=== PATIENT | female | born 1980 | race Caucasian/White ===

== ENCOUNTER 2020-04-15 15:46 | Emergency (ER) | payer OTHER ==
[~2020-04-15] VITALS: Ht 170.2 cm; Wt 56.7 kg
[2020-04-15 15:46] VITALS: BP 137/80
[2020-04-15] MEDS ORDERED: ACETAMINOPHEN 325 MG TABLET PO ONE (16:15)
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
[2020-04-15] MEDS ORDERED: NAPR-683 PO (17:42)
[2020-04-15] MEDS ORDERED: CYCL-331 PO (17:42)
== END 2020-04-15 17:48 | disposition home or self-care (01) ==
LOC: ER 15:46
DX: T22.212A Burn of second degree of left forearm, initial encounter (principal); S16.1XXA Strain of muscle, fascia and tendon at neck level, initial encounter; R51 Headache; R07.89 Other chest pain; V49.49XA Driver injured in collision with other motor vehicles in traffic accident, initial encounter; Y93.I9 Activity, other involving external motion; Y92.488 Other paved roadways as the place of occurrence of the external cause; Y99.8 Other external cause status
CPT/HCPCS: 10140; 70450; 71045; 72125; 99285-25